=== PATIENT | male | born 1945 | race Caucasian/White ===

== ENCOUNTER 2016-06-16 09:31 | Day surgery (SDC) | payer OTHER, BC ==
[2016-06-12 11:40] VITALS: BMI 34.9
[2016-06-16] MEDS ORDERED: oxyCODONE HCL 10 MG SUSTAINED ACTING TABLET ONE (09:55)
[2016-06-16] MEDS ORDERED: MIDAZOLAM HCL 2 MG/2 ML SINGLE DOSE VIAL ONE ×2 (10:11→11:41)
[2016-06-16] MEDS ORDERED: oxyCODONE HCL 10 MG SUSTAINED ACTING TABLET PO STA (10:19)
--- NOTE | 2016-06-16 10:22 | HP ---
History & Physical Update - History History: No Change - Physical Physical: No Change - Assessment Assessment: No Change - Plan Plan: No Change (70 yo M presents for planned lumbar laminectomy L3-L4 with Dr. Hall. No changes to H&P present in paper chart.)
[2016-06-16] MEDS ORDERED: LIDOCAINE 1%-EPI 1:100,000 30 ML MDV IJ ONE (10:44)
[2016-06-16] MEDS ORDERED: THROMBIN (BOVINE) 5,000 UNIT VIAL TP ONE ×2 (10:44→12:06)
[2016-06-16] MEDS ORDERED: BUPIVACAINE HCL/PF 2.5 MG/ML - 30 ML VIAL IJ ONE (10:44)
[2016-06-16] MEDS ORDERED: methylPREDNISolone ACET (DEPO) 40 MG/1 ML VIAL ONE (10:44)
[2016-06-16] MEDS ORDERED: PROPOFOL 20 ML ONE (11:13)
[2016-06-16] MEDS ORDERED: LIDOCAINE 1%/EPI 1:100000 (50 ML MULTI DOSE VIAL) INF ONE (11:20)
[2016-06-16] MEDS ORDERED: methylPREDNISolone ACET (DEPO) 40 MG/1 ML VIAL IM ONE (12:07)
[2016-06-16] MEDS ORDERED: BUPIVACAINE HCL/PF 0.25% (2.5MG/ML) 10 ML VIAL IJ ONE (12:07)
[2016-06-16] MEDS ORDERED: LIDOCAINE HCL 1%, 10 MG/ML (20ML VIAL) ONE (13:09)
[2016-06-16] MEDS ORDERED: LIDOCAINE HCL 1%, 10 MG/ML (20ML VIAL) IJ ONE (13:11)
[2016-06-16] MEDS ORDERED: HYDROmorphone HCL/PF 1 MG/ML VIAL (FOR PYXIS CHARGING ONLY) ONE (13:14)
[2016-06-16] MEDS ORDERED: LACTATED RINGERS SOLUTION 1,000 ML IV SCH (13:15)
--- NOTE | 2016-06-16 13:49 | SURG ---
Surgery Testing Consultant Note Testing Consultant: Judie Lau PA-C Date of Service: 06/16/16 Diagnosis: spinal stenosis L3-L4 Procedure: Lumbar laminectomy L3-L4 I was present for the entirety of the operative procedure. For further detail, please refer to operative report. Visit type - Case Type Case Type: Scheduled Admission - New patient This patient is new to me today: Yes Date on this admission: 06/16/16
--- NOTE | 2016-06-16 13:49 | OP ---
Operative Note - Note: Operative Date: 06/16/16 Pre-Operative Diagnosis: spinal stenosis L3-L4 Operation: Lumbar laminectomy L3-L4 Post-Operative Diagnosis: Same as Pre-op Surgeon: Bhavin Hall Unified Communications Engineer: Judie Lau Anesthesia: Spinal Estimated Blood Loss (mls): 40 Fluid Volume Replaced (mls): 1,600 Operative Report Dictated: Yes
[2016-06-16 15:22] VITALS: BP 130/84; TEMP 98.2
[2016-06-16 15:25] VITALS: PULSE 66
[2016-06-16] MEDS ORDERED: ONDANSETRON 4 MG/2 ML VIAL IVPUSH PRN (15:50)
[2016-06-16] MEDS ORDERED: PROMETHAZINE HCL 25 MG/1 ML VIAL IVPUSH PRN (15:50)
[2016-06-16] MEDS ORDERED: oxyCODONE HCL 5 MG TABLET PO PRN (15:50)
--- NOTE | 2016-06-19 15:33 | OP ---
DATE OF OPERATION: 06/16/2016 PREOPERATIVE DIAGNOSIS: Spinal stenosis, L3-L4. POSTOPERATIVE DIAGNOSIS: Spinal stenosis, L3-L4. PROCEDURE PERFORMED: Laminectomy, L3-L4. SURGEON: Bhavin Hall MD VESSEL ENGINEER: RICARDO Cotton ESTIMATED BLOOD LOSS: 50 mL. INTRAVENOUS FLUIDS: Per Anesthesia. ANESTHESIA: Spinal. COMPLICATIONS: None. DISPOSITION: Patient brought to the PACU in stable condition. INDICATION FOR SURGERY: The patient is a 70-year-old gentleman who has been suffering with significant pain from his back down his legs. X-rays and MRI were completed which noted a spinal stenosis at L3-L4. He had gone through an exhaustive course of treatment for this which included medications, physical therapy, as well as injections. Unfortunately, his pain continued to persist despite all this. At this point, risks, benefits, and alternatives were discussed, and the patient consented to surgery. DESCRIPTION OF PROCEDURE: The patient was brought to the operating room by the anesthesia staff. After appropriate patient identification was performed, spinal anesthesia was given. He was placed prone onto the José frame with all areas of bony prominences well padded at this time. Two needles were placed into his back to carolann off the L3-L4 level, and x-ray was taken to confirm that this was correct. The needles were removed and 10 mL of lidocaine with epinephrine were injected into his back at this time. His back was prepped and draped in a sterile manner. An incision was made from the top of L3 down to the bottom of L4. Dissection was carried down to the fascia, and the fascia was split open at this time and appropriate retractors were then placed in. A spinal needle was placed onto the L3 lamina to carolann off the L3-L4 level. An x-ray was taken to confirm this as correct. The needle was removed. The microscope was brought in. At this point, the interspinous ligament at L3-L4 was removed. A portion of the L3-L4 spinous process was removed. The flavum was identified and was removed. A portion of the inferior-superior facets was removed to complete foraminotomy such that by the end of the procedure, both L4 nerve roots appeared to be well decompressed. All bleeding was well controlled at this time. Steroid was placed over the nerve root. FloSeal was placed over that. The fascia was closed with a No. 1 Vicryl suture. The subcutaneous tissues were closed with 2-0 Vicryl suture. Skin was closed with 3-0 Monocryl suture. Dermabond was applied. Steri-Strips were applied. Sterile dressing applied. Patient was placed supine on the OR bed and brought to the PACU in stable condition. Robert [id number] MTDD
== END 2016-06-16 15:27 | disposition home or self-care (01) ==
LOC: FASU 09:31
PROVIDERS: ATTEND Orthopaedic Surgery Orthopaedic Surgery of the Spine
PROC: 01NB0ZZ Release Lumbar Nerve, Open Approach (ICD-10-PCS; principal; 2016-06-16 10:45)
DX: M48.06 Spinal stenosis, lumbar region (principal)
CPT/HCPCS: 72100-TC; 76000-TC; 94760